=== PATIENT | male | born 1975 | race African-American/Black ===

== ENCOUNTER 2016-09-14 00:26 | Emergency (ER) | payer BC ==
[~2016-09-14] VITALS: Ht 172.7 cm; Wt 68.0 kg
--- NOTE | ~2016-09-14 | CR170 ---
[facility] A Service of [facility] RADIOLOGY TEXT RESULTS PATIENT: CRISTOFER RITTER LOCATION: [facility] : 79 UNIT #: [id number] AGE: [address]: Bernard Sánchez MD SEX: M ORDER DR: [id number] [facility] [address] [place], [place] [address] [id number] E MR#: [id number] #: [id number] NAME: CRISTOFER RITTER : 1975 SEX: M STUDY DATE/TIME: 09/14/2016 1:22 UNIT: [facility] ROOM: STUDY DESCRIPTION: CR Knee 2 Views Rt Attending Physician: Bernard Sánchez M.D. Ordering Physician: Bernard Sánchez M.D. Primary Care Physician: Primary Care Physician No MEDICAL IMAGING REPORT This report is preliminary unless electronic signature is present EXAM Two views right knee 09/14/2016 HISTORY Right knee pain for 1 week. No known injury. Swelling. COMPARISON None. FINDINGS AP and lateral projection of the knee shows smooth articular anatomy without indication of fracture or dislocation at the major weight-bearing surface of the knee. There is no indication of radiopaque foreign body about the knee surface or joint effusion. IMPRESSION Normal knee. Dictated by... Bev Soria M.D. THIS IS AN ELECTRONICALLY VERIFIED REPORT Bev Soria M.D. at 09/14/2016 9:58 PM YE/geoff TD: 09/14/2016 10:51 JOB #: [id number] MEDICAL IMAGING REPORT Page 1 of 1 COPY
[~2016-09-14 00:26] MED LIST: DOXYCYCLINE HY100 M3 PO; FLAGYL PO; FLEXERIL10 M1 PO; VOLTAREN75 MG PO
== END 2016-09-14 01:55 | disposition home or self-care (01) ==
LOC: CED 00:26
DX: M25.561 Pain in right knee (principal); F17.200 Nicotine dependence, unspecified, uncomplicated
CPT/HCPCS: 29530; 73560; 99283

== ENCOUNTER 2016-09-24 14:12 | Emergency (ER) | payer BC ==
[~2016-09-24] VITALS: Ht 172.7 cm; Wt 68.0 kg
[2016-09-24 15:54] LABS: URINE SOURCE CLEAN CATCH
[2016-09-24 16:01] LABS: BASOPHIL# 0.1 X10e3 (0-0.3); BASOPHIL% 1.2 % (0-2.5); EOSINOPHIL# 0.1 X10e3 (0-0.7); HEMATOCRIT 46.2 % (38.0-50.0); HEMOGLOBIN 15.5 gm/dL (13.0-16.0); LYMPHOCYTE% 34.4 % (17.0-45.0); MEAN CELL VOLUME 98.3 FL (83-96); MEAN CORPUSCULAR HGB CONC 33.6 g/dL (30-36); MEAN PLATELET VOLUME 8.7 FL (6.5-11.5); MONOCYTE# 0.5 X10e3 (0-1.0); MONOCYTE% 9.3 % (3.0-12.0); NEUTROPHIL# 3.1 X10e3 (1.5-7.1); NEUTROPHIL% 53.1 % (40-75); PLATELET COUNT 219 X10e3 (140-420); RED CELL DISTRIBUTION WIDTH 12.9 % (11.0-15.5); WHITE BLOOD COUNT 5.8 X10e3 (4.0-10.5)
[2016-09-24 16:03] LABS: URINE APPEARANCE CLEAR; URINE BILIRUBIN NEG (NEG); URINE BLOOD NEG (NEG); URINE COLOR YELLOW; URINE GLUCOSE NEG (NEG); URINE KETONE NEG (NEG); URINE LEUKOCYTE ESTERASE NEG (NEG); URINE NITRATE NEG (NEG); URINE PH 6.5 (5-8); URINE PROTEIN NEG (NEG); URINE SPECIFIC GRAVITY 1.011 (1.003-1.035)
[2016-09-24 16:04] LABS: DIFF IND NO
[2016-09-24 16:08] LABS: CULTURE INDICATED? NO
[2016-09-24 16:37] LABS: ALBUMIN SERUM 4.4 g/dL (3.5-5.0); BILIRUBIN, DIRECT 0.1 mg/dL (0.0-0.2); BILIRUBIN,INDIRECT 0.5 mg/dL (0.0-0.9); BILIRUBIN,TOTAL 0.6 mg/dL (0.2-2.0); BUN/CREATININE RATIO 13.63; CALCIUM SERUM 9.3 mg/dL (8.4-10.2); CREATININE SERUM 1.1 mg/dL (0.6-1.4); GLOM FILT RATE Estimated 97.5 mL/min (>60); PROTEIN TOTAL SERUM 7.5 g/dL (6.0-8.3)
[2016-09-29 19:01] LABS: CHLAMYDIA TRACH Not Detected (Not Detected); N GONOR Not Detected (Not Detected)
== END 2016-09-24 17:17 | disposition home or self-care (01) ==
LOC: CED 14:12 → CFTX 14:12
PROVIDERS: Nurse Practitioner
DX: Z20.2 Contact with and (suspected) exposure to infections with a predominantly sexual mode of transmission (principal); R30.0 Dysuria; Z79.899 Other long term (current) drug therapy
CPT/HCPCS: 36415; 80048; 80076; 81003; 82150; 83690; 85025; 87491; 87591; 96372; 99284; J0696